=== PATIENT | female | born 1990 ===

== ENCOUNTER 2021-01-28 17:54 | Emergency (ER) | payer OTHER ==
[~2021-01-28] VITALS: Ht 162.6 cm; Wt 59.0 kg
[2021-01-28] MEDS ORDERED: PRENATAL + DHA1 EAC1 (18:03)
== END 2021-01-28 20:07 | disposition home or self-care (01) ==
LOC: ER 17:54
DX: O26.851 Spotting complicating pregnancy, first trimester (principal); Z34.01 Encounter for supervision of normal first pregnancy, first trimester

== ENCOUNTER 2021-03-11 11:11 | Emergency (ER) | payer OTHER ==
[~2021-03-11] VITALS: Ht 162.6 cm; Wt 59.4 kg
[~2021-03-11 11:11] MED LIST: PRENATAL + DHA1 EAC1
== END 2021-03-11 15:02 | disposition home or self-care (01) ==
LOC: ER 11:11
DX: O20.0 Threatened abortion (principal)

== ENCOUNTER 2021-08-26 06:40 | Outpatient (CLI) | payer OTHER | END 2021-08-26 07:35 | disposition home or self-care (01) | LOC: NST 06:40 | PROVIDERS: ATTEND Obstetrics & Gynecology | DX: Z34.83 Encounter for supervision of other normal pregnancy, third trimester (principal) ==

== ENCOUNTER 2021-08-28 11:30 | Outpatient (CLI) | payer OTHER | END 2021-08-29 11:38 | disposition home or self-care (01) | LOC: NST 11:30 → OBS/DEL 11:30 | PROVIDERS: ATTEND Obstetrics & Gynecology Maternal & Fetal Medicine | DX: O76 Abnormality in fetal heart rate and rhythm complicating labor and delivery (principal); Z3A.38 38 weeks gestation of pregnancy; Z20.822 Contact with and (suspected) exposure to COVID-19 ==

== ENCOUNTER 2021-09-06 05:54 | Inpatient (IN) | payer OTHER ==
[~2021-09-06] VITALS: Ht 162.6 cm; Wt 68.0 kg
[2021-09-06] MEDS ORDERED: IRON325 MG PO (06:40)
== END 2021-09-08 12:47 | disposition home or self-care (01) | DRG 807 ==
LOC: LDR 05:54 → SURG-SUITE 05:54 → OB/GYN 11:39 → SURG-SUITE 11:48
PROVIDERS: ADMIT Obstetrics & Gynecology Maternal & Fetal Medicine; ATTEND Obstetrics & Gynecology Maternal & Fetal Medicine
PROC: 10E0XZZ Delivery of Products of Conception, External Approach (ICD-10-PCS; principal; 2021-09-06)
PROC: 0W8NXZZ Division of Female Perineum, External Approach (ICD-10-PCS; 2021-09-06)
PROC: 10907ZC Drainage of Amniotic Fluid, Therapeutic from Products of Conception, Via Natural or Artificial Opening (ICD-10-PCS; 2021-09-06)
PROC: 3E033VJ Introduction of Other Hormone into Peripheral Vein, Percutaneous Approach (ICD-10-PCS; 2021-09-06)
PROC: 4A1HXFZ Monitoring of Products of Conception, Cardiac Rhythm, External Approach (ICD-10-PCS; 2021-09-06)
DX: O80 Encounter for full-term uncomplicated delivery (principal); Z37.0 Single live birth; Z3A.39 39 weeks gestation of pregnancy; Z86.16 Personal history of COVID-19